=== PATIENT | female | born 1965 | race African-American/Black ===

== ENCOUNTER 2017-02-10 11:31 | Emergency (ER) | payer SELFPAY ==
[~2017-02-10] VITALS: Ht 162.6 cm; Wt 111.1 kg
[2017-02-10 11:43] VITALS: BP 164/98
--- NOTE | 2017-02-10 12:08 | PHYS DOC ---
Past Medical History Past Medical History: Hypertension Past Surgical History: Appendectomy, Hysterectomy, Tubal ligation Alcohol Use: None Drug Use: None Adult General Chief Complaint Chief Complaint: COUGH HPI HPI Patient is a 51 year old female with history of hypertension who presents with a dry cough for 1 week. Patient denies any fever. Denies any nasal congestion. Review of Systems Review of Systems Constitutional: See history of present illness Eyes: Denies change in visual acuity, redness, or eye pain [] HENT: Denies nasal congestion or sore throat [] Respiratory: Reports dry cough, denies shortness of breath [] Cardiovascular: No additional information not addressed in HPI [] GI: Denies abdominal pain, nausea, vomiting, bloody stools or diarrhea [] : Denies dysuria or hematuria [] Musculoskeletal: Denies back pain or joint pain [] Integument: Denies rash or skin lesions [] Neurologic: Denies headache, focal weakness or sensory changes [] All other systems were reviewed and found to be within normal limits, except as documented in this note. Current Medications Current Medications Current Medications Medications (Trade) Dose Ordered Sig/Shade Start Time Stop Time Status Last Admin Dose Admin Albuterol/ Ipratropium (Duoneb) 3 ml 1X ONCE 02/10/17 12:15 02/10/17 12:16 DC 02/10/17 12:29 3 ML Benzonatate (Tessalon Perle) 100 mg 1X ONCE 02/10/17 12:15 02/10/17 12:16 DC 02/10/17 12:33 100 MG Prednisone (Prednisone) 50 mg 1X ONCE 02/10/17 12:15 02/10/17 12:16 DC 02/10/17 12:34 50 MG Allergies Allergies Allergies Coded Allergies Type Severity Reaction Last Updated Verified No Known Drug Allergies 04/29/13 No Physical Exam Physical Exam Constitutional: Well developed, well nourished, no acute distress, non-toxic appearance. [] HENT: Normocephalic, atraumatic, bilateral external ears normal, oropharynx moist, no oral exudates, nose normal. [] Eyes: PERRLA, EOMI, conjunctiva normal, no discharge. [] Neck: Normal range of motion, no tenderness, supple, no stridor. [] Cardiovascular:Heart rate regular rhythm, no murmur [] Lungs & Thorax: Diminished breath sounds to posterior lung bases. Patient has a dry cough in the ED. Abdomen: Bowel sounds normal, soft, no tenderness, no masses, no pulsatile masses. [] Skin: Warm, dry, no erythema, no rash. [] Back: No tenderness, no CVA tenderness. [] Extremities: No tenderness, no cyanosis, no clubbing, ROM intact, no edema. [] Neurologic: Alert and oriented X 3, normal motor function, normal sensory function, no focal deficits noted. [] Psychologic: Affect normal, judgement normal, mood normal. [] Current Patient Data Vital Signs Vital Signs Date Time Temp Pulse Resp B/P (MAP) Pulse Ox O2 Delivery O2 Flow Rate FiO2 02/10/17 12:29 96 Room Air 02/10/17 11:43 98.5 97 18 98.5 EKG EKG [] Radiology/Procedures Radiology/Procedures []PROCEDURE: CHEST PA & LATERAL Chest, 2 views, 02/10/2017: History: Cough, congestion Comparison is made to a study from 04/29/2013. There is mild elevation of the left diaphragm with mild gastric distention with gas and fluid. The heart size and pulmonary vascularity are normal. No pulmonary infiltrates are seen. There is no evidence of pleural fluid. IMPRESSION: 1. Gastric distention. 2. No acute cardiopulmonary abnormality is detected. DICTATED and SIGNED BY: DEVYN TREJO MD DATE: 02/10/17 1235 CC: MARCUS BINGHAM MD; ILAN FITZGERALD APRN ~ Course & Med Decision Making Course & Med Decision Making Pertinent Labs and Imaging studies reviewed. (See chart for details) Patient is in the ED with a dry cough for 1 week. Patient was given a DuoNeb treatment and started on prednisone. Chest x-ray interpreted by radiologist was negative for any acute findings but noted for gastric distention with fluid and gas. Patient was instructed to take Gas-X as well as magnesium citrate. She states she has history of constipation. Her last bowel movement was yesterday. She was discharged with albuterol inhaler prednisone and Tessalon Perles. She is to follow-up with her PCP in one week. Dragon Disclaimer Dragon Disclaimer This electronic medical record was generated, in whole or in part, using a voice recognition dictation system. Departure Departure Impression: Primary Impression: Acute bronchitis Additional Impression: Constipation Disposition: HOME, SELF-CARE Condition: STABLE Referrals: MARCUS BINGHAM MD (PCP) follow up in one week Patient Instructions: Acute Bronchitis, Constipation, Adult Additional Instructions: You were seen for bronchitis and constipation. Please take the prescribed medicines as ordered. Take magnesium citrate today as well as gas x, this will help push the fluid as well as the gas in your stomach out it will help with constipation. Take MiraLAX every day to prevent constipation. Increase your dietary fiber intake. Consider exercise. Follow-up with your doctor next week. Scripts Benzonatate (TESSALON PERLE) 100 Mg Capsule 1 CAP PO TID, #30 CAP Prov: ILAN FITZGERALD APRN 02/10/17 Albuterol Sulfate (Proair Respiclick) 90 Mcg Aer.pow.ba 1 PUFF IH PRN Q6HRS Y for SHORTNESS OF BREATH, #1 INHALER Prov: ILAN FITZGERALD APRN 02/10/17 Prednisone (PREDNISONE) 50 Mg Tablet 1 TAB PO DAILY, #4 TAB Prov: ILAN FITZGERALD APRN 02/10/17 Problem Qualifiers Primary Impression: Acute bronchitis Bronchitis organism: unspecified organism Qualified Codes: J20.9 - Acute bronchitis, unspecified Additional Impression: Constipation Constipation type: unspecified constipation type Qualified Codes: K59.00 - Constipation, unspecified ILAN FITZGERALD APRN Feb 10, 2017 12:08
[2017-02-10] MEDS ORDERED: IPRATRPIUM/ALBUTEROL 0.5/2.5MG 3 ML NEBU. NEB ONE (12:15)
[2017-02-10] MEDS ORDERED: predniSONE 20 MG TABLET PO ONE (12:15)
[2017-02-10] MEDS ORDERED: BENZONATATE 100 MG CAPSULE. PO ONE (12:15)
--- NOTE | 2017-02-10 12:40 | RAD ---
Chest, 2 views, 02/10/2017: History: Cough, congestion Comparison is made to a study from 04/29/2013. There is mild elevation of the left diaphragm with mild gastric distention with gas and fluid. The heart size and pulmonary vascularity are normal. No pulmonary infiltrates are seen. There is no evidence of pleural fluid. IMPRESSION: 1. Gastric distention. 2. No acute cardiopulmonary abnormality is detected.
[2017-02-10] MEDS ORDERED: BENZ100C PO (13:27)
[2017-02-10] MEDS ORDERED: PROAIR RESPICL90 MCG IH (13:27)
[2017-02-10] MEDS ORDERED: PRED50TA PO (13:27)
== END 2017-02-10 13:30 | disposition home or self-care (01) ==
LOC: ER 11:31
DX: J20.9 Acute bronchitis, unspecified (principal); K59.00 Constipation, unspecified; I10 Essential (primary) hypertension; Z90.49 Acquired absence of other specified parts of digestive tract; Z90.710 Acquired absence of both cervix and uterus
CPT/HCPCS: 71020; 94640; 99284; J7512; J7620

== ENCOUNTER 2018-05-21 18:54 | Emergency (ER) | payer OTHER ==
[~2018-05-21] VITALS: Ht 162.6 cm; Wt 113.4 kg
[~2018-05-21 18:54] MED LIST: BENZ100C PO; PRED50TA PO; PROAIR RESPICL90 MCG IH
[2018-05-21 19:00] VITALS: BP 145/81
[2018-05-21] MEDS ORDERED: BENZ100C PO (19:44)
[2018-05-21] MEDS ORDERED: VENTOLIN HFA18 GM INH (19:44)
[2018-05-21] MEDS ORDERED: AZIT250T6 PO (19:44)
[2018-05-21] MEDS ORDERED: METH4TAB2 PO (19:44)
--- NOTE | 2018-05-21 19:46 | PHYS DOC ---
Past Medical History Past Medical History: Bronchitis, Hypertension Past Surgical History: Appendectomy, Hysterectomy, Tubal ligation Alcohol Use: None Drug Use: None Adult General Chief Complaint Chief Complaint: SORE THROAT HPI HPI Patient is a 53 year old female who presents with sore throat, cough, body aches, nasal congestion 1 week. Review of Systems Review of Systems Constitutional: fever or chills [] Eyes: Denies change in visual acuity, redness, or eye pain [] HENT: nasal congestion or sore throat [] Respiratory: cough or shortness of breath [] Cardiovascular: No additional information not addressed in HPI [] GI: Denies abdominal pain, nausea, vomiting, bloody stools or diarrhea [] : Denies dysuria or hematuria [] Musculoskeletal: Denies back pain or joint pain [] Integument: Denies rash or skin lesions [] Neurologic: Denies headache, focal weakness or sensory changes [] Endocrine: Denies polyuria or polydipsia [] All other systems were reviewed and found to be within normal limits, except as documented in this note. Allergies Allergies Allergies Coded Allergies Type Severity Reaction Last Updated Verified No Known Drug Allergies 04/29/13 No Physical Exam Physical Exam Constitutional: Well developed, well nourished, no acute distress, non-toxic appearance. [] HENT: Normocephalic, atraumatic, bilateral external ears normal, oropharynx moist, no oral exudates, nose normal. Throat red without exudates or swelling. Bilateral TM's boggy. [] Eyes: PERRLA, EOMI, conjunctiva normal, no discharge. [] Neck: Normal range of motion, no tenderness, supple, no stridor. [] Cardiovascular:Heart rate regular rhythm, no murmur [] Lungs & Thorax: Bilateral breath sounds clear to auscultation [] Abdomen: Bowel sounds normal, soft, no tenderness, no masses, no pulsatile masses. [] Skin: Warm, dry, no erythema, no rash. [] Back: No tenderness, no CVA tenderness. [] Extremities: No tenderness, no cyanosis, no clubbing, ROM intact, no edema. [] Neurologic: Alert and oriented X 3, normal motor function, normal sensory function, no focal deficits noted. [] Psychologic: Affect normal, judgement normal, mood normal. [] Current Patient Data Vital Signs Vital Signs Date Time Temp Pulse Resp B/P (MAP) Pulse Ox O2 Delivery O2 Flow Rate FiO2 05/21/18 19:00 98.6 98 18 145/81 (102) 97 Room Air 98.6 EKG EKG [] Radiology/Procedures Radiology/Procedures [] Course & Med Decision Making Course & Med Decision Making Patient is a 53 year old female who presents with sore throat, cough, body aches, nasal congestion 1 week. Patient states that she has had bronchitis before in the past and that is what this is feeling like. Alert and oriented. Skin pink warm and dry. Mucous membranes moist. Lungs are clear to auscultation all lobes. There is no wheezing heard. Speaks in full clear sentences. Vital signs are within normal limits. Throat is reddened but not swollen than or exudates. Bilateral tympanic membranes are boggy. Heart regular without murmur. Patient denies nausea, vomiting, diarrhea, chest pain, dizziness. PERRLA. Neurologically intact. Patient follow-up with her primary care provider. Patient was treated for her cough and upper respiratory infection. Patient to drink plenty of fluids and take medications as prescribed. Dragon Disclaimer Dragon Disclaimer This electronic medical record was generated, in whole or in part, using a voice recognition dictation system. Departure Departure Impression: Primary Impression: Cough Additional Impression: Sore throat Disposition: 01 HOME, SELF-CARE Condition: STABLE Referrals: JOVANY HILL MD (PCP) Patient Instructions: Cough, Adult, Sore Throat Additional Instructions: follow up with primary care provider. Take medications as prescribed. Drink plenty of fluids. Take ibuprofen or tylenol for pain. Scripts Albuterol Sulfate (VENTOLIN HFA INHALER) 18 Gm Hfa.aer.ad 2 PUFF INH Q4HRS for FOR ASTHMA, #1 INHALER 0 Refills Prov: RALF LANG APRN 05/21/18 Methylprednisolone (MEDROL) 4 Mg Tab.ds.pk 1 PKG PO UD, #1 PKG Prov: RALF LANG APRN 05/21/18 Benzonatate (TESSALON PERLE) 100 Mg Capsule 1 CAP PO TID, #30 CAP Prov: RALF LANG APRN 05/21/18 Azithromycin (AZITHROMYCIN TABLET) 250 Mg Tablet 1 PKG PO UD, #6 TAB Prov: RALF LANG APRN 05/21/18 Problem Qualifiers RALF LANG APRN May 21, 2018 19:46
== END 2018-05-21 20:30 | disposition home or self-care (01) ==
LOC: ER 18:54
DX: J02.9 Acute pharyngitis, unspecified (principal); R05 Cough; M79.10 Myalgia, unspecified site; R09.81 Nasal congestion; I10 Essential (primary) hypertension
CPT/HCPCS: 87070; 87880; 99283

== ENCOUNTER 2018-10-17 09:01 | Emergency (ER) | payer OTHER ==
[~2018-10-17] VITALS: Ht 162.6 cm; Wt 112.0 kg
[~2018-10-17 09:01] MED LIST changes: +AZIT250T6 PO; +METH4TAB2 PO; +VENTOLIN HFA18 GM INH
[2018-10-17 10:30] VITALS: BP 143/94
[2018-10-17 12:08] LABS: BASO # 0.1 x10^3/uL (0.0-0.2); BASO % 1 % (0-3); EOS # 0.2 x10^3/uL (0.0-0.7); EOS % 2 % (0-3); HEMATOCRIT 44.1 % (36.0-47.0); HEMOGLOBIN 15.4 g/dL (12.0-15.5); LYMPH # 3.1 x10^3/uL (1.0-4.8); LYMPH % 38 % (24-48); MEAN CORPUSCULAR HEMOGLOBIN 30 pg (25-35); MEAN CORPUSCULAR HGB CONC 35 g/dL (31-37); MEAN CORPUSCULAR VOLUME 85 fL (79-100); MONO # 0.7 x10^3/uL (0.0-1.1); MONO % 8 % (0-9); NEUT # 4.2 x10^3/uL (1.8-7.7); NEUT % 51 % (31-73); PLATELET COUNT 429 x10^3/uL (140-400); RED BLOOD COUNT 5.19 x10^6/uL (3.50-5.40); RED CELL DISTRIBUTION WIDTH 13.8 % (11.5-14.5); WHITE BLOOD COUNT 8.3 x10^3/uL (4.0-11.0)
[2018-10-17 12:22] LABS: CALCIUM 9.6 mg/dL (8.5-10.1); CREATININE 0.9 mg/dL (0.6-1.0); GFR 79.3; POTASSIUM 4.3 mmol/L (3.5-5.1)
[2018-10-17 12:28] LABS: ALBUMIN 3.6 g/dL (3.4-5.0); ALBUMIN/GLOBULIN RATIO 0.8 (1.0-1.7); TOTAL BILIRUBIN 1.2 mg/dL (0.2-1.0); TOTAL PROTEIN 8.2 g/dL (6.4-8.2)
[2018-10-17] MEDS ORDERED: IOHEXOL 350 MG/ML 100 ML VIAL. IV ONE (12:45)
[2018-10-17] MEDS ORDERED: CONTRAST GIVEN. MC PRN (12:45)
--- NOTE | 2018-10-17 13:46 | RAD ---
CT ANGIO CHEST ABD PELVIS Indication: Right lower quadrant pulsating mass. . Technique: After intravenous contrast administration, CT imaging was performed of the chest, abdomen and pelvis. 3-D reconstructions were performed. Exposure: One or more of the following individualized dose reduction techniques were utilized for this examination: 1. Automated exposure control 2. Adjustment of the mA and/or kV according to patient size 3. Use of iterative reconstruction technique. CTA chest: Irregularity of the wall of the ascending aorta, likely due to pulsatility artifact. No descending aortic dissection is identified. No evidence of aortic aneurysm in the chest. Proximal great vessels are patent. The main central pulmonary arteries are grossly patent. Partially visualized thyroid is symmetric. No significant lymph node enlargement. No pericardial effusion or pleural effusion. Lungs demonstrate no consolidating infiltrate or large mass. Note is made of elevation of the left hemidiaphragm and lung base with some left basilar atelectasis. Trachea and mainstem bronchi are grossly patent. CT abdomen pelvis: Limited images from prior CT abdomen pelvis study of 06/21/2005 are available. No evidence of abdominal aortic aneurysm or dissection. There may be a small second accessory left renal artery and celiac axis and superior mesenteric artery origins are patent. The inferior mesenteric artery origin is patent. Evaluation of nonvascular arterial structures is limited due to technique. Liver is nonenlarged. Small low-density lesion in the anterior right lobe of the liver measures 5 mm, too small to accurately characterize. This was probably present on the prior study. Spleen demonstrates mild calcifications but is not enlarged. Pancreas appears grossly unremarkable. No evidence of adrenal mass. Large low-density lesion of the right kidney measures 12.5 cm diameter. This has increased in size from the prior study at which time it measured about 4.5 cm. This measures about 25 Hounsfield units, greater than simple cystic density. This splays the right renal parenchyma. Anteriorly this mass extends to the anterior abdominal wall. Smaller low-density lesion of the left kidney measures 3.2 cm diameter and 34 Hounsfield units, also greater than a simple cyst. This was not definitely seen on the available images from 2006. Both kidneys demonstrate symmetric enhancement. Left upper pole nonobstructive calculus or calcification of the left kidney measures 4 mm., Was also seen previously. No calcified gallstone is identified. No significant lymph node enlargement. Mild gastric wall thickening may be due to nondistention. There is a focal air/gas density collection in the region of the proximal duodenum, likely a diverticulum, measuring 2.1 cm. No adjacent inflammatory type stranding is seen. No significant small bowel distention. No evidence of acute colitis. Bowel evaluation may be limited without oral contrast. The appendix is not clearly visualized. No evidence of ascites. No evidence of pneumoperitoneum. No significant urinary bladder wall thickening. No evidence of pelvic mass. Bones: Vertebral body height and alignment are grossly intact intact. Degenerative changes of both hips, greater on the right IMPRESSION: 1. No evidence of thoracic aortic aortic abdominal aneurysm. Irregularity of the wall of the ascending aorta is thought to be pulsatility artifact. 2. Large 12.5 cm right renal lesion, extending to the anterior abdominal wall. This could represent a complex cyst, but measures slightly greater than simple fluid density. There is also a smaller lesion of the left kidney which also measures greater than simple density. Given the size and density, these warrant follow-up evaluation. Ultrasound surveillance or MRI of the kidneys could be of benefit for further workup. 3. Small nonobstructive left renal calculus. 4. Small air/gas density adjacent to the proximal duodenum likely a diverticulum. 5. Subcentimeter lesion of the liver, too small to characterize but would most typically represent a benign etiology, and probably unchanged since prior study. Electronically signed by: Jose Michael MD (10/17/2018 1:43 PM) [facility]
--- NOTE | 2018-10-17 14:17 | PHYS DOC ---
Past Medical History Past Medical History: Bronchitis, Hypertension Past Surgical History: Appendectomy, Hysterectomy, Tubal ligation Alcohol Use: None Drug Use: None Adult General Chief Complaint Chief Complaint: OTHER COMPLAINTS HPI HPI Patient is a 53 year old female with history of hypertension who presents to the ED today complaining of a pulsating sensation on the right side of her abdomen that has been going on and off for the last 3 months. Patient denies any nausea, vomiting, diarrhea. Denies any abdominal pain. Denies any chest pain or shortness of breath. She is concerned she could have an aneurysm. She has no personal or family history of an aneurysm. Review of Systems Review of Systems Constitutional: Denies fever or chills [] Eyes: Denies change in visual acuity, redness, or eye pain [] HENT: Denies nasal congestion or sore throat [] Respiratory: Denies cough or shortness of breath [] Cardiovascular: No additional information not addressed in HPI [] GI: Reports pulsation to the right abdomen. Denies abdominal pain, nausea, vomi ting, bloody stools or diarrhea [] : Denies dysuria or hematuria [] Musculoskeletal: Denies back pain or joint pain [] Integument: Denies rash or skin lesions [] Neurologic: Denies headache, focal weakness or sensory changes [] All other systems were reviewed and found to be within normal limits, except as documented in this note. Current Medications Current Medications Current Medications Medications (Trade) Dose Ordered Sig/Shade Start Time Stop Time Status Last Admin Dose Admin Info (CONTRAST GIVEN -- Rx MONITORING) 1 each PRN DAILY PRN 10/17/18 12:45 10/19/18 12:44 Iohexol (Omnipaque 350 Mg/ml) 95 ml 1X ONCE 10/17/18 12:45 10/17/18 12:46 DC 10/17/18 12:47 95 ML Allergies Allergies Allergies Coded Allergies Type Severity Reaction Last Updated Verified No Known Drug Allergies 04/29/13 No Physical Exam Physical Exam Constitutional: Well developed, well nourished, no acute distress, non-toxic ko earance. [] HENT: Normocephalic, atraumatic, bilateral external ears normal, oropharynx moist, no oral exudates, nose normal. [] Eyes: PERRLA, EOMI, conjunctiva normal, no discharge. [] Neck: Normal range of motion, no tenderness, supple, no stridor. [] Cardiovascular:Heart rate regular rhythm, no murmur [] Lungs & Thorax: Bilateral breath sounds clear to auscultation [] Abdomen: Bowel sounds normal, soft, no tenderness, no masses, no pulsatile masses. [] Skin: Warm, dry, no erythema, no rash. [] Back: No tenderness, no CVA tenderness. [] Extremities: No tenderness, no cyanosis, no clubbing, ROM intact, no edema. [] Neurologic: Alert and oriented X 3, normal motor function, normal sensory function, no focal deficits noted. [] Psychologic: Affect normal, judgement normal, mood normal. [] Current Patient Data Vital Signs Vital Signs Date Time Temp Pulse Resp B/P (MAP) Pulse Ox O2 Delivery O2 Flow Rate FiO2 10/17/18 10:30 98.4 76 16 143/94 (110) 98 Room Air 98.4 Lab Values Laboratory Tests Test 10/17/18 12:00 White Blood Count 8.3 x10^3/uL (4.0-11.0) Red Blood Count 5.19 x10^6/uL (3.50-5.40) Hemoglobin 15.4 g/dL (12.0-15.5) Hematocrit 44.1 % (36.0-47.0) Mean Corpuscular Volume 85 fL (79-100) Mean Corpuscular Hemoglobin 30 pg (25-35) Mean Corpuscular Hemoglobin Concent 35 g/dL (31-37) Red Cell Distribution Width 13.8 % (11.5-14.5) Platelet Count 429 x10^3/uL (140-400) H Neutrophils (%) (Auto) 51 % (31-73) Lymphocytes (%) (Auto) 38 % (24-48) Monocytes (%) (Auto) 8 % (0-9) Eosinophils (%) (Auto) 2 % (0-3) Basophils (%) (Auto) 1 % (0-3) Neutrophils # (Auto) 4.2 x10^3/uL (1.8-7.7) Lymphocytes # (Auto) 3.1 x10^3/uL (1.0-4.8) Monocytes # (Auto) 0.7 x10^3/uL (0.0-1.1) Eosinophils # (Auto) 0.2 x10^3/uL (0.0-0.7) Basophils # (Auto) 0.1 x10^3/uL (0.0-0.2) Sodium Level 143 mmol/L (136-145) Potassium Level 4.3 mmol/L (3.5-5.1) Chloride Level 104 mmol/L (98-107) Carbon Dioxide Level 26 mmol/L (21-32) Anion Gap 13 (6-14) Blood Urea Nitrogen 13 mg/dL (7-20) Creatinine 0.9 mg/dL (0.6-1.0) Estimated GFR (Cockcroft-Gault) 79.3 BUN/Creatinine Ratio 14 (6-20) Glucose Level 90 mg/dL (70-99) Calcium Level 9.6 mg/dL (8.5-10.1) Total Bilirubin 1.2 mg/dL (0.2-1.0) H Aspartate Amino Transferase (AST) 18 U/L (15-37) Alanine Aminotransferase (ALT) 17 U/L (14-59) Alkaline Phosphatase 153 U/L (46-116) H Total Protein 8.2 g/dL (6.4-8.2) Albumin 3.6 g/dL (3.4-5.0) Albumin/Globulin Ratio 0.8 (1.0-1.7) L Laboratory Tests 10/17/18 12:00 Laboratory Tests 10/17/18 12:00 EKG EKG [] Radiology/Procedures Radiology/Procedures []PROCEDURE: CT ANGIO CHEST ABD PELVIS CT ANGIO CHEST ABD PELVIS Indication: Right lower quadrant pulsating mass. . Technique: After intravenous contrast administration, CT imaging was performed of the chest, abdomen and pelvis. 3-D reconstructions were performed. Exposure: One or more of the following individualized dose reduction techniques were utilized for this examination: 1. Automated exposure control 2. Adjustment of the mA and/or kV according to patient size 3. Use of iterative reconstruction technique. CTA chest: Irregularity of the wall of the ascending aorta, likely due to pulsatility artifact. No descending aortic dissection is identified. No evidence of aortic aneurysm in the chest. Proximal great vessels are patent. The main central pulmonary arteries are grossly patent. Partially visualized thyroid is symmetric. No significant lymph node enlargement. No pericardial effusion or pleural effusion. Lungs demonstrate no consolidating infiltrate or large mass. Note is made of elevation of the left hemidiaphragm and lung base with some left basilar atelectasis. Trachea and mainstem bronchi are grossly patent. CT abdomen pelvis: Limited images from prior CT abdomen pelvis study of 06/21/2005 are available. No evidence of abdominal aortic aneurysm or dissection. There may be a small second accessory left renal artery and celiac axis and superior mesenteric artery origins are patent. The inferior mesenteric artery origin is patent. Evaluation of nonvascular arterial structures is limited due to technique. Liver is nonenlarged. Small low-density lesion in the anterior right lobe of the liver measures 5 mm, too small to accurately characterize. This was probably present on the prior study. Spleen demonstrates mild calcifications but is not enlarged. Pancreas appears grossly unremarkable. No evidence of adrenal mass. Large low-density lesion of the right kidney measures 12.5 cm diameter. This has increased in size from the prior study at which time it measured about 4.5 cm. This measures about 25 Hounsfield units, greater than simple cystic density. This splays the right renal parenchyma. Anteriorly this mass extends to the anterior abdominal wall. Smaller low-density lesion of the left kidney measures 3.2 cm diameter and 34 Hounsfield units, also greater than a simple cyst. This was not definitely seen on the available images from 2006. Both kidneys demonstrate symmetric enhancement. Left upper pole nonobstructive calculus or calcification of the left kidney measures 4 mm., Was also seen previously. No calcified gallstone is identified. No significant lymph node enlargement. Mild gastric wall thickening may be due to nondistention. There is a focal air/gas density collection in the region of the proximal duodenum, likely a diverticulum, measuring 2.1 cm. No adjacent inflammatory type stranding is seen. No significant small bowel distention. No evidence of acute colitis. Bowel evaluation may be limited without oral contrast. The appendix is not clearly visualized. No evidence of ascites. No evidence of pneumoperitoneum. No significant urinary bladder wall thickening. No evidence of pelvic mass. Bones: Vertebral body height and alignment are grossly intact intact. Degenerative changes of both hips, greater on the right IMPRESSION: 1. No evidence of thoracic aortic aortic abdominal aneurysm. Irregularity of the wall of the ascending aorta is thought to be pulsatility artifact. 2. Large 12.5 cm right renal lesion, extending to the anterior abdominal wall. This could represent a complex cyst, but measures slightly greater than simple fluid density. There is also a smaller lesion of the left kidney which also measures greater than simple density. Given the size and density, these warrant follow-up evaluation. Ultrasound surveillance or MRI of the kidneys could be of benefit for further workup. 3. Small nonobstructive left renal calculus. 4. Small air/gas density adjacent to the proximal duodenum likely a diverticulum. 5. Subcentimeter lesion of the liver, too small to characterize but would most typically represent a benign etiology, and probably unchanged since prior study. Electronically signed by: Jose Michael MD (10/17/2018 1:43 PM) [facility] DICTATED and SIGNED BY: JOSE MICHAEL MD DATE: 10/17/18 3970 Course & Med Decision Making Course & Med Decision Making Pertinent Labs and Imaging studies reviewed. (See chart for details) This is a 53-year-old female patient who presents to the ED today complaining of a pulsating sensation to the right side of her abdomen that has been going on for 3 months. Patient is concerned she could have an aneurysm. She has no family or personal history of aneurysms. Labs are negative for any acute findings. CT angiogram chest abdomen and pelvis was negative for any aneurysm noted for irregularity of the wall of the ascending aorta and is thought to be the pulsating artifact. Also noted for large right renal lesion, left small nonobstructive left renal calculus.Small air/gas density adjacent to the proximal duodenum likely a diverticulum.Subcentimeter lesion of the liver, too small to characterize but would most typically represent a benign etiology, and probably unchanged. D/c to home. F/u with urology, cardiology and PCP Dragon Disclaimer Dragon Disclaimer This electronic medical record was generated, in whole or in part, using a voice recognition dictation system. Departure Departure Impression: Primary Impression: Renal mass Additional Impression: Kidney stone Disposition: HOME, SELF-CARE Condition: STABLE Referrals: JOVANY HILL MD (PCP) follow up next week YOCASTA LEO MD follow up next week PATRICIA FLORES MD follow up next week Patient Instructions: Kidney Stones, [id number] Additional Instructions: You were evaluated in the Ed, you do not have an aneurysm. You mass in your right kidney and kidney stone in the left kidney, please follow up with the provided urologist. We provided you a synoptic meteorologist as well follow up with them next week. Problem Qualifiers ILAN FITZGERALD APRN Oct 17, 2018 14:17
== END 2018-10-17 14:19 | disposition home or self-care (01) ==
LOC: ER 09:01
DX: N20.0 Calculus of kidney (principal); I10 Essential (primary) hypertension; Z90.710 Acquired absence of both cervix and uterus; Z98.51 Tubal ligation status; Z90.89 Acquired absence of other organs
CPT/HCPCS: 36415; 71275; 74174; 80053; 85025; 99285; Q9967

== ENCOUNTER → 2020-05-14 | Outpatient (CLI) | payer OTHER ==
--- NOTE | 2020-05-14 18:15 | RAD ---
EXAMINATION: XR LUMBAR SPINE 2-3V, XR KNEE_LT 1-2 VIEWS CLINICAL HISTORY: Low back and left knee pain TECHNIQUE: XR LUMBAR SPINE 2-3V, XR KNEE_LT 1-2 VIEWS Number of Images/Views: 2 each COMPARISON: None FINDINGS: L-SPINE: Normal anatomic alignment. No evidence of acute fracture or spondylolisthesis. Disc spaces a re relatively well-maintained. [id number] facet arthropathy, greatest in the lower lumbar spine . SI joints maintained. Prominent stool incidentally noted in the rectosigmoid colon. LEFT KNEE: Tricompartmental moderate joint space narrowing and small marginal osteophytes. No acute f racture. No joint effusion. IMPRESSION: Zaua-go-[id number] facet arthropathy, greatest in the lower lumbar spine. Moderate tricompartmental degenerative changes left knee, greatest medially. Electronically signed by: Mac Naidu DO (05/14/2020 6:13 PM) [id number]
== END ==
LOC: RAD 13:30
PROVIDERS: ATTEND Family Medicine
DX: M47.816 Spondylosis without myelopathy or radiculopathy, lumbar region (principal); M17.12 Unilateral primary osteoarthritis, left knee
CPT/HCPCS: 72100; 73560